=== PATIENT | female | born 1975 | race Caucasian/White ===

== ENCOUNTER → 2024-04-01 11:24 | Outpatient (REF) | payer OTHER, SELFPAY ==
[2024-04-01 19:12] LABS: Rubella Positive
[2024-04-03 11:08] LABS: Mumps Virus IgG Positive; Rubeola (Measles) IgG Positive; Varicella Zoster IgG (VZV) Positive
[2024-04-03 11:47] LABS: Quantiferon Mitogen minus NIL 8.32 IU/mL; Quantiferon NIL 0.06 IU/mL; Quantiferon TB Gold Plus Negative (Negative)
== END ==
LOC: REG 11:24
PROVIDERS: ATTENDING PHYSICIAN Nurse Practitioner Family
DX: Z23 Encounter for immunization (principal)
CPT/HCPCS: 36415; 86480; 86735; 86762; 86765; 86787